=== PATIENT | female | born 2000 | race African-American/Black ===

== ENCOUNTER 2023-03-28 13:42 | Outpatient (CLI) | payer OTHER, SELFPAY ==
--- NOTE | 2023-03-28 13:54 | ECG_ITS ---
Measurements Intervals Mary D Rate: 74 P: 54 DC: 167 QRS: 67 QRSD: 75 T: 52 QT: 354 QTc: 395 Interpretive Statements SINUS RHYTHM NO PREVIOUS ECG AVAILABLE FOR COMPARISON Electronically Signed On 03-28-2023 16:21:20 CDT by Lucinda Mcdaniel M.D.
== END 2023-03-28 13:43 | disposition home or self-care (01) ==
DX: Z01.818 Encounter for other preprocedural examination (principal)
CPT/HCPCS: 93005